=== PATIENT | female | born 1970 | race Caucasian/White ===

== ENCOUNTER → 2019-08-04 | Outpatient (CLI) | payer BC ==
[2014-04-03 13:05] VITALS: BP 111/64
--- NOTE | 2019-08-05 07:49 | KCIC ---
EXAM: Bilateral thumbs, 3 views. HISTORY: Bilateral thumb osteoarthritis. COMPARISON: None. FINDINGS: On the right, there is moderate first carpometacarpal osteoarthritis. There is mild triscaphe osteoarthritis. There are no significant degenerative changes more distally along the right first ray. On the left, there is moderate to severe first carpometacarpal osteoarthritis. There is a 4 mm loose body along the dorsum of the joint. The joints more distally along the first ray are preserved. Sclerosis along the first distal phalangeal tuft is consistent with a bone island or melorheostosis. IMPRESSION: 1. Moderate to severe first carpometacarpal osteoarthritis on the left greater than right. Electronically signed by: Ellie Castillo MD (08/05/2019 7:47 AM) [facility]
--- NOTE | 2019-08-05 07:55 | KCIC ---
EXAM: SPINE COMPLETE AP LAT. HISTORY: Scoliosis. Chronic back and neck pain. COMPARISON: None. FINDINGS: There is 20 degrees focal kyphosis at C4-5. There is slight anterolisthesis at this level. Degenerative disc disease is moderate to severe from C5 through C7. There is a 3 mm posterior disc-osteophyte complex at C5-6. There is mild degenerative disc disease within the mid thoracic spine. No fractures are appreciated in the thoracic spine. There is mild degenerative disc disease from L3 through S1. No fractures are identified. Facet osteoarthritis is severe from L4 through S1. A dextrocurvature across the cervicothoracic junction measures 22 degrees. A levocurvature centered at T10 measures 41 degrees. A dextrorotatory curvature centered at L2-3 measures 32 degrees. IMPRESSION: 1. S-shaped scoliosis measuring up to 41 degrees in the lower thoracic portion as detailed above. 2. Moderate to severe degenerative disc disease as above. Electronically signed by: Ellie Castillo MD (08/05/2019 7:52 AM) [facility]
== END | disposition home or self-care (01) ==
LOC: KCIC 15:52
PROVIDERS: ATTEND Internal Medicine
DX: M18.0 Bilateral primary osteoarthritis of first carpometacarpal joints (principal); M50.33 Other cervical disc degeneration, cervicothoracic region; M51.37 Other intervertebral disc degeneration, lumbosacral region; M47.817 Spondylosis without myelopathy or radiculopathy, lumbosacral region; M43.6 Torticollis; G89.29 Other chronic pain; M40.292 Other kyphosis, cervical region
CPT/HCPCS: 72082

== ENCOUNTER → 2019-10-11 | Outpatient (CLI) | payer BC ==
[2014-04-03 13:05] VITALS: BP 111/64
--- NOTE | 2019-10-11 14:28 | KCIC ---
MRI Cervical Spine Without Contrast History: Osteophyte of the cervical spine, scoliosis, neck stiffness and pain for about one year Technique: Multiplanar, multi sequential noncontrast MR imaging was performed of the cervical spine. Comparison: None Findings: There is some motion degradation. There is severe dextroscoliosis centered upon the superior thoracic spine. Cervical cord caliber is within normal limits, focus of subtle increased T2 signal of the cord at C6. There is [id number] reversal of the lordotic curvature centered near C4-5. There is minimal posterior subluxation of C5 relative to C6, grade 1 anterior spondylolisthesis C3-4 and C4-C5. There is moderate to severe degenerative disc disease at C5-C6, to lesser degree at C6-7, and minimally at C4-C5. C2-C3: Neural foramina and spinal canal are adequate. C3-C4: There is minimal disc osteophyte complex eccentric to the right lateral recess, central canal about 10 mm. There is severe right facet degenerative change, also mild right uncovertebral degenerative change. There is moderate to severe narrowing of the right neural foramen, left neural foramen adequate. C4-C5: There is negligible disc osteophyte complex, central canal adequate about 11 mm. Neural foramina are adequate. There is right facet hypertrophic change. C5-C6: There is disc osteophyte complex and bulge with indentation upon the ventral thecal sac, partial effacement of ventral subarachnoid space with light contact of the ventral cord. Central canal is minimally narrowed about 9 mm also with mild narrowing of the lateral recesses bilaterally. There is uncovertebral degenerative change greater on the left. There is right facet hypertrophic change. There is moderate to severe left and likely at least [id number]-[id number] right neural foramina compromise although somewhat difficult to accurately characterize due to motion. C6-C7: There is broad protrusion more eccentric to left lateral recess about 2 mm AP, mild indentation upon the ventral thecal sac. Central canal is borderline about 10 mm, mild left lateral recess stenosis. There is mild left uncovertebral degenerative change. There is at least mild narrowing of the left neural foramen, right neural foramen adequate. C7-T1: Spinal canal and neural foramina are adequate. Impression: 1. There is mild spinal stenosis C5-C6. Facet and uncovertebral degenerative change contributes to neural foramina compromise as described, most notable left greater than right at C5-6 and on the right at C3-4. 2. There is fairly severe dextroscoliosis centered upon the superior thoracic spine. There is multilevel mild abnormal alignment as stated, also reversal of the lordotic curvature. 3. There is no expansile cervical cord signal abnormality. There is possible small focus of increased T2 signal of the cord at C6-7 which could be due to myelomalacia although limited characterization due to motion artifact, could be artifactual. 4. There is degenerative disc disease and spondylosis greatest C5-6 and C6-7. Electronically signed by: Alfonso Bass MD (10/11/2019 2:25 PM) [facility]
== END | disposition home or self-care (01) ==
LOC: KCIC MRI 12:17
PROVIDERS: ATTEND Internal Medicine
DX: M50.322 Other cervical disc degeneration at C5-C6 level (principal); M47.812 Spondylosis without myelopathy or radiculopathy, cervical region; M48.02 Spinal stenosis, cervical region; M25.78 Osteophyte, vertebrae; M43.6 Torticollis; M41.9 Scoliosis, unspecified
CPT/HCPCS: 72141

== ENCOUNTER → 2021-01-04 | Outpatient (CLI) | payer BC ==
[2014-04-03 13:05] VITALS: BP 111/64
--- NOTE | 2021-01-05 16:58 | CARD ---
MR#: [id number] Date of Study: 01/04/2021 Ordering Physician: BAR MOYA, Referring Physician: BAR MOYA, Tech: [facility] APPROVED REPORT EXAM: Two-dimensional and M-mode echocardiogram with Doppler and color Doppler. Other Information Quality : AverageHR: 75bpm Technically limited study due to Breast Surgery INDICATION Mitral Valve Disease 2D DIMENSIONS Left Atrium(2D)4.2 (1.6-4.0cm)IVSd1.0 (0.7-1.1cm) Aortic Root(2D)2.7 (2.0-3.7cm)LVDd6.0 (3.9-5.9cm) LVOT Diameter2.0 (1.8-2.4cm)PWd1.0 (0.7-1.1cm) LVDs3.9 (2.5-4.0cm)FS (%) 34.6 % SV112.6 mlLVEF(%)62.9 (>50%) Aortic Valve AoV Peak Hiren.100.2cm/sAoV VTI16.3cm AO Peak GR.4.0mmHgLVOT Peak Hiren.83.8cm/s LVOT VTI 14.47cmAO Mean GR.2mmHg JAMILA (VMAX)2.79mn5HAY (VTI)2.79cm2 Mitral Valve MV E Jzvewzuj871.6cm/sMV E Peak Gr.134mmHg MV DECEL [id number] A Uriyqtwu47.0cm/s MV E Mean Gr.4mmHgMV BUB27ai E/A Ratio3.2MVA (PHT)4.03cm2 TDI E/Lateral E'10.9E/Medial E'12.7 Pulmonary Valve PV Peak Wzbtklvb23.1cm/sPV Peak Grad.2mmHg Tricuspid Valve TR P. [id number]/sRAP UULUFJZF1jcYl TR Peak Gr.51epOpPCSP96lxEj LEFT VENTRICLE The Left Ventricle is moderately dilated. There is normal left ventricular wall thickness. The left v entricular systolic function is normal and the ejection fraction is within normal range. The Ejection Fraction is 50-55%. Septal motion consistent with conduction abnormality. Otherwise, grossly normal wall motion. Tissue Doppler imaging reveals moderate left ventricular diastolic dysfunction. RIGHT VENTRICLE The right ventricle is mildly dilated. There is normal right ventricular wall thickness. The right ve ntricular systolic function is normal. ATRIA The left atrium is severely dilated. The right atrium is mildly dilated. The interatrial septum is in tact with no evidence for an atrial septal defect or patent foramen ovale as noted on 2-D or Doppler imaging. AORTIC VALVE The aortic valve is normal in structure and function. Doppler and Color Flow revealed trace aortic re gurgitation. Calculated aortic valve area is 2.43 cm2 with maximum pressure gradient of 5 mmHg and me an pressure gradient of 2 mmHg. MITRAL VALVE The mitral valve is mildly thickened with mild bileaflet prolapse and restricted posterior leaflet. M itral valve prolapse is present. There is no mitral valve stenosis with a mean gradient of 3.9 mmHg. Doppler and Color-flow revealed severe mitral regurgitation. TRICUSPID VALVE The tricuspid valve is normal in structure and function. Doppler and Color Flow revealed trace to mil d tricuspid regurgitation with an estimated PAP of 42 mmHg. There is no tricuspid valve stenosis. PULMONIC VALVE The pulmonic valve is not well visualized. Doppler and Color Flow revealed trace pulmonic valvular re gurgitation. There is no pulmonic valvular stenosis. GREAT VESSELS The aortic root is normal in size. The IVC is normal in size and collapses >50% with inspiration. PERICARDIAL EFFUSION There is no evidence of significant pericardial effusion. Critical Notification Critical Value: No <Conclusion> The left ventricular systolic function is normal and the ejection fraction is within normal range. Th e Ejection Fraction is 50-55%. Septal motion consistent with conduction abnormality. Otherwise, grossly normal wall motion. Doppler and Color-flow revealed severe mitral regurgitation. Doppler and Color Flow revealed trace to mild tricuspid regurgitation with an estimated PAP of 42 mmH g. Signed by : Leland Blanco, Electronically Approved : 01/05/2021 16:57:46
== END ==
LOC: ECHO 15:49
PROVIDERS: ATTEND Family Medicine
DX: I08.1 Rheumatic disorders of both mitral and tricuspid valves (principal)
CPT/HCPCS: 93306

== ENCOUNTER → 2021-12-18 | Outpatient (CLI) | payer BC ==
[2014-04-03 13:05] VITALS: BP 111/64
--- NOTE | 2021-12-19 16:14 | KCIC ---
XR CERVICAL SPINE 4-5V History: Scoliosis. Comparison: 10/11/2019 MRI cervical spine. 08/04/2019 cervical spine radiographs Technique: AP, bilateral oblique, lateral and odontoid views of the cervical spine. Findings: There are 7 non-rib bearing cervical vertebral segments. There is no evidence of fracture. No destructive osseous lesions are seen. Mild levoconvex curvature. Reversal of the normal cervical lordosis with apex at C4-C5. Multilevel cervical facet hypertrophy greatest at C5-C6 and C6-C7. Severe disc space narrowing C5-C6 and C6-C7 with advanced uncovertebral hypertrophy at these levels. Right neural foraminal narrowing at C3-C4 and C5-C6. Left neural foraminal narrowing at C5-C6 and C6- C7. Partially visualized sternotomy wires. IMPRESSION: 1. Multilevel cervical disc and facet disease with multilevel neural foraminal narrowing as above. Electronically signed by: Seng Garcia MD (12/19/2021 4:12 PM) [id number]
--- NOTE | 2021-12-19 16:24 | KCIC ---
XR THORACIC SPINE 3VIEWS, XR LUMBAR SPINE 2-3V History: Scoliosis. Comparison: 08/04/2019 Technique: 3 upright views of the thoracic spine and to upright views of the lumbar spine. Findings: There are 12 rib-bearing thoracic vertebral segments and 5 nonrib-bearing lumbar vertebral segments. Partial sacralization with pseudoarticulation of the transverse processes of L5. No evidence of fracture. No destructive osseous lesion. There is 44 degrees levoconvex curvature from the superior endplate of T7 to the inferior endplate of L1. There is 24 degrees dextroconvex curvature from the superior endplate of L2 to the inferior endp late of L4. Straightening of the normal thoracic kyphosis. Multilevel degenerative endplate changes in the thoracic spine. Narrowing greatest at T10-T11. Advanced facet hypertrophy L4-L5 and L5-S1. Lumbar spine disc space primarily at the left side of the intervertebral disc is dextroconvex curvature. Sternotomy wires and valvuloplasty. IMPRESSION: 1. Multiphasic scoliosis of the thoracolumbar spine measuring up to 44 degrees levoconvex T7-L1. 2. Degenerative changes of the lumbar and thoracic spine as above. Electronically signed by: Seng Garcia MD (12/19/2021 4:22 PM) [id number]
== END ==
LOC: KCIC 15:58
PROVIDERS: ATTEND Internal Medicine Rheumatology
DX: M41.85 Other forms of scoliosis, thoracolumbar region (principal); M47.816 Spondylosis without myelopathy or radiculopathy, lumbar region; M47.814 Spondylosis without myelopathy or radiculopathy, thoracic region; M43.27 Fusion of spine, lumbosacral region; M47.897 Other spondylosis, lumbosacral region; M47.812 Spondylosis without myelopathy or radiculopathy, cervical region; M48.02 Spinal stenosis, cervical region; M43.8X2 Other specified deforming dorsopathies, cervical region; M47.892 Other spondylosis, cervical region
CPT/HCPCS: 72050; 72072; 72100